=== PATIENT | female | born 1955 | race African-American/Black ===

== ENCOUNTER → 2016-08-12 | Outpatient (CLI) | payer MEDICAID ==
--- NOTE | ~2016-08-12 | MY11 ---
[facility] A Service of [facility] RADIOLOGY TEXT RESULTS PATIENT: SHANELL BOND LOCATION: [facility] : 55 UNIT #: [id number] AGE: [address]: Ricci Santana MD SEX: F ORDER DR: [id number] [facility] [address] [place], [place] [address] [id number] O MR#: [id number] Acc #: [id number] NAME: SHANELL BOND : 1955 SEX: F STUDY DATE/TIME: 08/12/2016 11:17 UNIT: [facility] ROOM: STUDY DESCRIPTION: MY Mammogram Screening Dig Jem Attending Physician: Ricci Santana Sr., M.D. Referring Physician: Ricci Santana Sr., M.D. Ordering Physician: Ricci Santana Sr., M.D. Primary Care Physician: Ricci Santana Sr., M.D. MEDICAL IMAGING REPORT This report is preliminary unless electronic signature is present EXAM Screening mammogram 08/12 INDICATIONS 61-year-old with no personal or family history of breast cancer. No current complaints. FINDINGS Routine digital screening views of both breasts were obtained. Study reviewed with an FDA-approved CAD device. Comparison is made with 01/17/2015, 09/21/2013. Breast parenchyma shows scattered fibroglandular densities. No new masses or suspicious microcalcifications are seen. Benign nodule in the lower inner left breast is stable. IMPRESSION Benign mammogram. Routine screen 1 year is recommended. Patients over the age of 40 are entered into a reminder system with target due date for the next mammogram. A result letter will also be sent to the patient. BIRADS: 2 Benign finding. Dictated by... Fab Vick Jr., M.D. THIS IS AN ELECTRONICALLY VERIFIED REPORT Fab Vick Jr., M.D. at 08/12/2016 5:00 PM Antonella TD: 08/12/2016 14:10 JOB #: [id number] MEDICAL IMAGING REPORT [facility] A Service of [facility] RADIOLOGY TEXT RESULTS PATIENT: SHANELL BOND LOCATION: [facility] : 55 UNIT #: [id number] AGE: [address]: Ricci Santana MD SEX: F ORDER DR: COPY
== END | disposition home or self-care (01) ==
LOC: CWCC 10:54
DX: Z12.31 Encounter for screening mammogram for malignant neoplasm of breast (principal)
CPT/HCPCS: G0202